=== PATIENT | male | born 1985 | race Caucasian/White ===

== ENCOUNTER 2017-08-14 16:27 | Emergency (ER) | payer OTHER ==
[2017-08-14 16:39] VITALS: BP 137/79
[2017-08-14] MEDS ORDERED: NEOMYCIN/POLYMYX/DEXAMETH OPHTH DROPS 5 ML RIGHTEYE STA (16:56)
--- NOTE | 2017-08-14 16:56 | ED Physician Documentation ---
PD HPI OPHTHO - Stated complaint Stated Complaint: SWOLLEN RIGHT EYE - History obtained from History obtained from: Patient - History of Present Illness Timing - onset: How many days ago (3-4) Timing - duration: Days Timing - details: Gradual onset, Still present Location: Right Quality / character: Itching, Burning Associated symptoms: Redness, Discharge. No: FB sensation, Photophobia, Decreased vision Contributing factors: No: Exposed to conjunctivitis, Recent URI, FB, Wears contacts Similar symptoms before: Has not had sx before Recently seen: Clinic (seen at [facility] and Dx as stye and told to use warm compresses.) Review of Systems Constitutional: denies: Fever, Chills Eyes: reports: Discharge, Irritation. denies: Loss of vision, Photophobia Nose: denies: Rhinorrhea / runny nose, Congestion Throat: denies: Sore throat Respiratory: denies: Cough GI: denies: Nausea, Vomiting, Diarrhea Skin: denies: Rash, Lesions PD PAST MEDICAL HISTORY - Past Medical History Past Medical History: No - Past Surgical History Past Surgical History: No - Present Medications Home Medications: Ambulatory Orders Medication Instructions Recorded Confirmed Neomycin/Poly/Dex Ophth Drops 2 drops RIGHTEYE QID #1 bottle 08/14/17 [Maxitrol Ophth Drops] - Allergies Allergies/Adverse Reactions: Allergies Allergy/AdvReac Type Severity Reaction Status Date / Time No Known Drug Allergies Allergy Verified 08/14/17 16:39 - Social History Does the pt smoke?: No Smoking Status: Never smoker Does the pt drink ETOH?: No Does the pt have substance abuse?: No - Immunizations Immunizations are current?: Yes - POLST Patient has POLST: No PD ED PE NORMAL - Vitals Vital signs reviewed: Yes - General General: Alert and oriented X 3, No acute distress, Well developed/nourished PD ED PE EXPANDED - Eyes Eyes: PERRL, EOMI, Right eye, Injected conj/sclera, Exudate, Anterior chambers clear, Normal fundi. No: Eyelid swelling, Fluorescein uptake Results - Vitals Vitals: Vital Signs - 24 hr 08/14/17 16:37 Temperature 36.5 C Heart Rate 91 Respiratory 18 Rate Blood Pressure 137/79 H O2 Saturation 97 Oxygen O2 Source Room air PD MEDICAL DECISION MAKING - ED course Complexity details: considered differential, d/w patient Departure - Departure Disposition: 01 Home, Self Care Clinical Impression: Conjunctivitis Qualifiers: Conjunctivitis type: acute Acute conjunctivitis type: bacterial Laterality: right Qualified Code(s): H10.31 - Unspecified acute conjunctivitis, right eye Condition: Stable Record reviewed to determine appropriate education?: Yes Instructions: ED Conjunctivitis Bacterial Follow-Up: [facility] [Provider Group] Prescriptions: Neomycin/Poly/Dex Ophth Drops [Maxitrol Ophth Drops] 2 drops RIGHTEYE QID #1 bottle Comments: Use the antibiotic eyedrops 1-2 drops every 2 hours while awake today and tomorrow and then reduce to 4-5 times a day. This should improve quite well within the first couple of days but may take 3-5 days to fully clear. You will still be contagious the first day in particular. Rest off work for a day. Use Tylenol or ibuprofen if needed for pains. You can use the proparacaine numbing drops periodically for discomfort but up to a day only and do not be out working or outside when using it. It wears off after about a half an hour. You want to have your protective reflex and feel abnormalities if you are going to be doing activity. You do not want to use it beyond a day as you want to know if it is not improving well. Recheck if not well improved over a couple of days. Forms: Activity restrictions Discharge Date/Time: 08/14/17 17:10
== END 2017-08-14 17:10 | disposition home or self-care (01) ==
LOC: ED 16:27
DX: H10.31 Unspecified acute conjunctivitis, right eye (principal); B96.89 Other specified bacterial agents as the cause of diseases classified elsewhere
CPT/HCPCS: 99283; J3490